=== PATIENT | female | born 1960 | race Caucasian/White ===

== ENCOUNTER 2017-02-08 16:16 | Observation (INO) ==
[2017-02-08] MEDS ORDERED: Aspirin 81 MG TAB.CHEW PO STA (17:14)
[2017-02-08] MEDS ORDERED: Ondansetron 4 MG/2 ML VIAL IVP ONE (17:14)
[2017-02-08] MEDS ORDERED: 0.9 % Sodium Chloride 1,000 ML IVC ONE (17:14)
[2017-02-08 17:30] LABS: Basophils % 0.3 %; Eosinophils # 0.1 K/mcL (0.0-0.6); Eosinophils % 0.7 %; Hematocrit 46.2 % (35.3-44.9); Immature Granulocytes % 0.2 % (0-4); Lymphocytes # 4.1 K/mcL (0.6-4.6); Lymphocytes % 32.1 %; Mean Corpuscular HGB Conc 32.5 g/dL (31.6-35.5); Mean Corpuscular Hemoglobin 28.1 pg (28.0-33.3); Mean Corpuscular Volume 86.5 fL (83.0-100.0); Mean Platelet Volume 12.3 fL (9.4-12.4); Monocytes # 0.8 K/mcL (0.0-1.3); Monocytes % 6.5 %; Neutrophils # 7.6 K/mcL (1.6-8.9); Platelet Count 332 K/mcL (140-400); Red Blood Count 5.34 M/mcL (3.82-4.97); Red Cell Distribution Width 12.8 % (11.5-14.5); Segmented Neutrophils % 60.2 %
[2017-02-08 17:43] LABS: Alanine Aminotransferase 24 Units/L (0-55); Albumin 3.9 g/dL (3.5-5.0); Albumin/Globulin Ratio 1.1 (1.1-2.2); Alkaline Phosphatase 54 Units/L (38-126); Aspartate Amino Transferase 21 Units/L (5-34); BUN/Creatinine Ratio 17 (6-26); Bilirubin,Total 0.4 mg/dL (0.2-1.2); Blood Urea Nitrogen 15 mg/dL (7-20); Calcium 9.9 mg/dL (8.6-10.8); Carbon Dioxide 24 mEq/L (19-29); Chloride 107 mEq/L (98-109); Globulin 3.7 g/dL (2.4-3.5); Glucose 125 mg/dL (70-99); Osmolality,Calculated 296 (280-300); Sodium 142 mEq/L (136-145); Total Protein 7.6 g/dL (6.0-8.3); eGFR For African Americans > 60 (> 60); eGFR For Non-African Americans > 60 (> 60)
[2017-02-08 18:05] LABS: Thyroid Stimulating Hormone 2.259 mcIU/mL (0.350-4.840)
--- NOTE | 2017-02-08 18:54 | Emergency Department Note ---
Disposition Clinical Impression: Palpitations Atrial fibrillation Qualifiers: Atrial fibrillation type: paroxysmal Qualified Code(s): I48.0 - Paroxysmal atrial fibrillation Disposition: Admitted As Inpatient Condition: Good Referrals: Fany Alicea MD [Primary Care Provider] - Forms: ED Satisfaction Letter Time of Disposition: 19:06 Arrhythmia/Palpitations HPI - General Chief Complaint: ED Arrhythmia/Palpitations Stated Complaint: tachycardiafor an hour Time Seen by Provider: 02/08/17 16:37 Source: patient Mode of arrival: ambulatory Limitations: no limitations Nursing Notes Reviewed: Yes Vital Signs Reviewed: Yes - History of Present Illness HPI Narrative: Patient presents emergency room complaining of palpitations. She felt them on and off for years but today they did not go away denies any other symptoms or complaints. She has had these on and off for many years. His workup in the past for thyroid function issues as well as vascular abnormalities. Patient denies any recent medication changes except for increased stress at work. Pt Subjective Complaint: rapid heart beat, palpitations Context: occurred during rest Associated symptoms: Reports: denies other symptoms - Related Data Home Medications Medication Instructions Recorded Confirmed B Complex with Vitamin C [Cynthia-Bee 1 each PO DAILY 02/08/17 02/08/17 with C] Calcium Carbonate/Vitamin D3 1 each PO DAILY 02/08/17 02/08/17 [Calcium 500-Vit D3 200 Tablet] Esomeprazole Magnesium [Nexium 22.3 mg PO DAILY 02/08/17 02/08/17 24Hr] Gabapentin [Neurontin] 300 mg PO [facility] 02/08/17 02/08/17 Gabapentin [Neurontin] 600 mg PO HS 02/08/17 02/08/17 Magnesium 200 mg PO DAILY 02/08/17 02/08/17 Melatonin [Melatin] 3 mg PO HS 02/08/17 02/08/17 Allergies Allergy/AdvReac Type Severity Reaction Status Date / Time Penicillins Allergy Anaphylaxis Verified 02/08/17 16:25 Opioids-Meperidine and AdvReac Agitated Verified 02/08/17 16:25 Related [Opioids-Meperidine & Related] All systems ED: reviewed and negative except as stated. Review of Systems: As Per HPI Constitutional: Denies: fever, chills Cardiovascular: Reports: palpitations. Denies: chest pain, dyspnea on exertion , orthopnea Respiratory: Denies: cough, dyspnea, wheezes Gastrointestinal: Denies: abdominal pain, nausea, vomiting, diarrhea Genitourinary: Denies: urgency, dysuria Musculoskeletal: Denies: back pain, neck pain Neurological: Denies: headache Psychiatric: Denies: anxiety, depression Endocrine: Denies: fatigue Past Medical History - Past Medical History Attestation: Yes The following information was validated with the patient. Source: patient Medical history: Reports: GERD, other Surgical history: Reports: other Psychiatric history: Reports: no psych history [employer] history: Reports: no [employer] history - Social History Smoking Status: Never smoker Smokeless Tobacco Status: No Alcohol use: Reports: none Drug use: Reports: none Physical Exam - General Limitations: no limitations General appearance: alert - Neck Neck exam: Present: normal inspection, full ROM, trachea midline - Chest Chest inspection: Present: normal inspection, symmetric chest wall rise - Respiratory Respiratory exam: Present: normal lung sounds bilaterally. Absent: respiratory distress, wheezes, accessory muscle use - Cardiovascular Cardiovascular exam: Present: tachycardia, irregular rhythm, normal heart sounds - Abdominal Exam Abdominal exam: Present: soft, Non-Tender, normal bowel sounds. Absent: tenderness, distention, guarding, rebound, rigidity - Extremities Exam Extremities exam: Present: normal inspection, full ROM, normal capillary refill. Absent: tenderness - Back Exam Back exam: Present: normal inspection, full ROM. Absent: tenderness - Neurological Exam Neurological exam: Present: alert, oriented X3, CN II-XII intact, normal gait - Skin Skin exam: Present: warm, dry, intact, normal color Course Course Narrative: Patient seen and examined the time of arrival. See history of present illness. 56-year-old female presents emergency room complaining of palpitations. She has had these on and off for several years. Onset earlier today and they were persistent. She is concerned because she has never had persistent like this in the past. Patient denies any chest pain shortness of breath headache vision changes nausea vomiting or diarrhea. Denies any fevers or chills. Patient's initial evaluation shows heart rate in the 1:30 to 150 range. EKG shows atrial fibrillation patient has never had any 4. Basic laboratory workup including electrolytes and chemistry panel is ordered. The patient sustained atrial fibrillation after fluids and medication evaluation will provide her with Cardizem bolus to see if we can convert spontaneously. Otherwise physical exam is benign head is atraumatic pupils equal and reactive to light. Extraocular muscles are intact. Lungs are clear heart is regular abdomen is soft. Otherwise no other acute medical issues or symptoms. Disposition pending workup and treatment first. - Reevaluation(s) Reevaluation #1: Patient has negative laboratory workup at this time. Electrolytes and thyroid function are normal. Fluids been given and what appears to be tachycardic rhythm and has maintained a single dose of 10 mg of Cardizem to begin at this time. Repeat EKG completed after medication was given. Patient is now in sinus rhythm with no acute abnormalities. Admission process will be completed at the request of myself secondary to appears to be paroxysmal A. fib despite been undiagnosed for several years. Patient with cardiac evaluation in the hospital. No need for anticoagulation at this time. Patient is otherwise resting comfortably in the bed with normal rhythm at this point. She is comfortable with this plan hospitalfor admission Time: 19:04 Reevaluation #2: Patient discussed with the hospitalist Dr. cook. Review the presentation symptoms medical history as well as response to medications here. Happy to admit the patient this time and no anti-coagulation studies recommended. Patient otherwise is resting in the bed at this time. Admission for paroxysmal A. fib be completed. Sinus rhythm noted on repeat EKG at this time. We will continue monitor here and so admission is completed Time: 19:42 Vital Signs Temperature 98 F 02/08/17 16:30 Pulse Rate 126 02/08/17 16:30 Respiratory Rate 20 02/08/17 16:30 Blood Pressure 141/97 02/08/17 16:30 O2 Sat by Pulse Oximetry 97 02/08/17 16:30 Temperature 98 F 02/08/17 16:30 Pulse Rate 91 02/08/17 18:45 Respiratory Rate 16 02/08/17 18:45 Blood Pressure 122/75 02/08/17 18:45 O2 Sat by Pulse Oximetry 97 02/08/17 18:45 Oxygen Delivery Oxygen Delivery Room Air Arrhythmia/Palpitations - [facility] Narrative Medical decision making narrative: Paroxysmal A. fib, rapid ventricular response - Medical Records Medical records reviewed: Yes I reviewed the patient's medical records. - Lab Data Lab results reviewed: Yes I reviewed the patient's lab results. Result diagrams: 02/08/17 16:48 02/08/17 16:48 Lab Results 02/08/17 02/08/1717 Range/Units 16:48 16:48 16:48 WBC 12.7 H (4.3-11.1) K/mcL RBC 5.34 H (3.82-4.97) M/mcL Hgb 15.0 (11.5-15.4) g/dL Hct 46.2 H (35.3-44.9) % MCV 86.5 (83.0-100.0) fL MCH 28.1 (28.0-33.3) pg MCHC 32.5 (31.6-35.5) g/dL RDW 12.8 (11.5-14.5) % Plt Count 332 (140-400) K/mcL MPV 12.3 (9.4-12.4) fL Immature Gran % 0.2 (0-4) % Seg Neutrophils % 60.2 % Lymphocytes % 32.1 % Monocytes % 6.5 % Eosinophils % 0.7 % Basophils % 0.3 % Neutrophils # 7.6 (1.6-8.9) K/mcL Lymphocytes # 4.1 (0.6-4.6) K/mcL Monocytes # 0.8 (0.0-1.3) K/mcL Eosinophils # 0.1 (0.0-0.6) K/mcL Basophils # 0.0 (0.0-0.2) K/mcL Sodium 142 (136-145) mEq/L Potassium 4.0 (3.5-4.5) mEq/L Chloride 107 (98-109) mEq/L Carbon Dioxide 24 (19-29) mEq/L BUN 15 (7-20) mg/dL Creatinine 0.87 (0.57-1.11) mg/dL Est GFR ( Amer) > 60 (> 60) Est GFR (Non-Af Amer) > 60 (> 60) BUN/Creatinine Ratio 17 (6-26) Glucose 125 H (70-99) mg/dL Calculated Osmolality 296 (280-300) Calcium 9.9 (8.6-10.8) mg/dL Total Bilirubin 0.4 (0.2-1.2) mg/dL AST 21 (5-34) Units/L ALT 24 (0-55) Units/L Alkaline Phosphatase 54 (38-126) Units/L Troponin I 0.00 (0-0.03) ng/mL Serum Total Protein 7.6 (6.0-8.3) g/dL Albumin 3.9 (3.5-5.0) g/dL Globulin 3.7 H (2.4-3.5) g/dL Albumin/Globulin Ratio 1.1 (1.1-2.2) TSH 2.259 (0.350-4.840) mcIU/mL - Radiology Data Radiology results reviewed: Yes I reviewed the patient's radiology results. Chest x-ray is negative - EKG Data EKG attestation: Yes I reviewed and interpreted this EKG. Rate: tachycardia Rhythm: A.Fib [place]/QRS: normal Interpretation: other (Repeat EKG after Cardizem bolus shows sinus rhythm with heart rate 91 and normal intervals.) Critical Care Time Critical Care Time: Yes Total Critical Care Time: 35 Attestation: Critical care performed: Time is exclusive of separately billable procedures. Time includes: direct patient care, patient reassessment, coordination of patient care, interpretation of data (laboratory data, radiology data, and respiratory data), review of patient's medical records, medical consultation and documentation of patient care. Procedures included in critical care time: Procedures excluded from critical care time:
[2017-02-08] MEDS ORDERED: Acetaminophen 325 MG TABLET PO PRN (20:27)
[2017-02-08] MEDS ORDERED: Naloxone 0.4 MG/ML INJ IVP PRN (20:27)
--- NOTE | 2017-02-08 20:36 | Internal Med History&Physical ---
Date of Encounter: 02/08/17 Time of Encounter: 20:00 Assessment and Plan (1) Palpitations Current visit: Yes Status: Acute Per ED physician, patient was in Afib with RVR. ECG looks like SVT. Will order an Echocardiogram and consult Cardiology for the a.m. Daytime hospitalist to contact Cardiology in the morning. Patient is currently NSR. No anticoagulation started given no concrete evidence of Afib/Aflutter and low-moderate risk [id number] score of 1. (2) Leukocytosis Current visit: Yes Status: Acute Possibly reactive. No overt signs of infection at this time, CXR negative, but still awaiting UA. Qualifiers: Leukocytosis type: unspecified Qualified Code(s): D72.829 - Elevated white blood cell count, unspecified (3) Hyperglycemia Current visit: Yes Status: Acute History of "borderline DM." Will check A1C. Internal Medicine - H&P: HPI Chief complaint: palpitations Admitted From: Home Plans for Post Hospital Care: Home History of present illness: Ms. Coley is a 56 year old female with PMH GERD and palpitations on and off for the past 3 years who presents with palpitations and lightheadedness. Patient claims that she has not been feeling well over this past weekend and attributed this to stress and being over-worked. Has been having lightheadedness upon standing. She was resting this afternoon when she had sudden onset chest discomfort. Took her pulse using her friend's blood pressure cuff and it was "high." She went to the ED when her symptoms failed to improve. ED physician reported that patient was in Atrial Fibrillation with RVR and she was given a dose of Cardizem (bolus) and she converted to NSR. She feels well at this time. Past Med Surg Social Fam HX - Past Medical History Medical history: GERD, other Psychiatric history: no psych history - Past Surgical History Surgical History: other - Social History Smoking Status: Never smoker Smokeless Tobacco Status: No Alcohol use: none Drug use: none - Family History Father Age at : 50 Hx Family Cardiac Disorders: Yes ( from [place] ) Internal Medicine - H&P: Meds B Complex with Vitamin C [Cynthia-Bee with C] 1 each PO DAILY 02/08/17 [History] Calcium Carbonate/Vitamin D3 [Calcium 500-Vit D3 200 Tablet] 1 each PO DAILY 07/27 [History] Esomeprazole Magnesium [Nexium 24Hr] 22.3 mg PO DAILY 02/08/17 [History] Gabapentin [Neurontin] 300 mg PO QAM 02/08/17 [History] Gabapentin [Neurontin] 600 mg PO HS 02/08/17 [History] Magnesium 200 mg PO DAILY 02/08/17 [History] Melatonin [Melatin] 3 mg PO HS 02/08/17 [History] Allergies Penicillins Allergy (Verified 02/08/17 16:25) Anaphylaxis Opioids-Meperidine and Related [Opioids-Meperidine & Related] Adverse Reaction ( Verified 02/08/17 16:25) Agitated All Systems PM: A 10-system review of systems was performed and is negative for pertinent findings except as documented above in the HPI. - Constitutional Constitutional: chills Additional comments: some sweats - EENT Eyes: no blurry vision, no diplopia - Cardiovascular Cardiovascular ROS IM: as per HPI, irregular heart rhythm, lightheadedness, no dyspnea, no edema, no syncope - Respiratory Respiratory: no dyspnea - Neurological Neurological ROS: no abnormal gait, no weakness - Constitutional Vitals: Temp Pulse Resp BP Pulse Ox 98 F 91 16 122/75 97 02/08/17 16:30 02/08/17 18:45 02/08/17 18:45 02/08/17 18:45 02/08/17 18:45 General appearance: Present: cooperative, A&O X 3, pleasant, no acute distress, answers questions appropriately - ENT ENT exam: Present: mucous membranes moist, normal exam - Neck Neck exam general surgery: Present: supple. Absent: thyromegaly - Respiratory Respiratory exam: Present: CTAB - Cardiovascular Cardiovascular exam: Present: RRR, +S1, +S2. Absent: diastolic murmur, systolic murmur - Extremities Exam Extremities exam: Absent: pedal edema - Psychiatric Psychiatric exam: Present: normal affect, normal mood Internal Med - H&P Results - Labs CBC & Chem 7: 02/08/17 16:48 02/08/17 16:48
[2017-02-08 23:22] LABS: Bilirubin,Urine Negative (Negative); Blood,Urine Negative (Negative); Clarity,Urine Clear (Clear); Color,Urine Yellow (Yellow); Glucose,Urine (UA) Normal (Normal); Ketones,Urine Negative (Negative); Leukocyte Esterase,Urine Trace (Negative); Nitrite,Urine Negative (Negative); Protein,Urine Negative (Neg-Trace); Specific Gravity,Urine 1.024 (1.010-1.025); Urobilinogen,Urine Normal (Normal)
[2017-02-08 23:24] LABS: Bacteria,Urine None Seen per hpf (None-Few); Hyaline Casts,Urine None Seen per lpf (None-Few); RBC,Urine 0-3 per hpf (0-3); Squamous Epithelial Cell,Urine None Seen per lpf (None-Few)
[2017-02-09 04:22] LABS: Basophils % 0.5 %; Eosinophils # 0.1 K/mcL (0.0-0.6); Eosinophils % 1.2 %; Hematocrit 40.6 % (35.3-44.9); Immature Granulocytes % 0.1 % (0-4); Lymphocytes # 3.4 K/mcL (0.6-4.6); Lymphocytes % 39.9 %; Mean Corpuscular Volume 87.5 fL (83.0-100.0); Mean Platelet Volume 11.8 fL (9.4-12.4); Monocytes # 0.7 K/mcL (0.0-1.3); Monocytes % 7.8 %; Neutrophils # 4.3 K/mcL (1.6-8.9); Platelet Count 248 K/mcL (140-400); Red Blood Count 4.64 M/mcL (3.82-4.97); Segmented Neutrophils % 50.5 %
[2017-02-09 04:29] LABS: Hemoglobin A1C 5.8 %
[2017-02-09 04:38] LABS: Alanine Aminotransferase 18 Units/L (0-55); Albumin 3.1 g/dL (3.5-5.0); Albumin/Globulin Ratio 1.1 (1.1-2.2); Alkaline Phosphatase 42 Units/L (38-126); Aspartate Amino Transferase 15 Units/L (5-34); BUN/Creatinine Ratio 22 (6-26); Bilirubin,Total 0.5 mg/dL (0.2-1.2); Blood Urea Nitrogen 18 mg/dL (7-20); Calcium 9.2 mg/dL (8.6-10.8); Carbon Dioxide 27 mEq/L (19-29); Chloride 108 mEq/L (98-109); Chol/HDL Ratio 3.4 (0-4.9); Cholesterol 189 mg/dL (< 200); Globulin 2.9 g/dL (2.4-3.5); Glucose 104 mg/dL (70-99); HDL Cholesterol 55 mg/dL (40-59); LDL Cholesterol,Calculated 115 mg/dL (0-99); Magnesium 1.9 mg/dL (1.6-2.6); Osmolality,Calculated 298 (280-300); Potassium 4.1 mEq/L (3.5-4.5); Sodium 143 mEq/L (136-145); Triglycerides 96 mg/dL (< 150); eGFR For African Americans > 60 (> 60); eGFR For Non-African Americans > 60 (> 60)
[2017-02-09] MEDS ORDERED: Diltiazem CD (24hr) 120 MG CAPSULE PO SCH (10:15)
--- NOTE | 2017-02-09 10:38 | Cardiology Consult Note ---
Date of Encounter: 02/09/17 Time of Encounter: 10:36 Assessment and Plan (1) SVT (supraventricular tachycardia) Current Visit: Yes Status: Acute SVT HR 150s on presentation, converted with Cardizem bolus. Reported palpitations and chest pressure during episode--lasted approximately 2 hours. Symptoms resolved with return to SR. Reports more caffeine intake yesterday than usual. Currently SR, 12 hr tele AVG HR 75 SR with ectopy. Recommend PO Cardizem CD 120mg daily. Mag 1.9, K 4.1, TSH 2.259. Echo pending. If echo shows no significant findings, anticipate sign off with outpt follow- up. (2) WANDA (obstructive sleep apnea) Current Visit: Yes Status: Resolved Compliant with CPAP at home. (3) Chest pain Current Visit: Yes Status: Acute Chest pressure during SVT that resolved with conversion to SR. Reports intermittent atypical chest pain that she attributes to GERD. Father had OR at age 50, which he from. Recommend outpt stress test, as pt has already eaten. She is chest pain free currently without high risk features. Troponin negative x 2. Qualifiers: Chest pain type: unspecified Qualified Code(s): R07.9 - Chest pain, unspecified Discussion w patient/family: The assessment and plan as outlined above was discussed with the patient and/or family members who expressed understanding and agreement. All questions were answered. Thank you for involving us in the care of your patient. Please call with any questions. I will discuss all the above with Dr. Scott Dotson and make changes as necessary. History of Present Illness Consult date: 02/09/17 Requesting physician: Tanya Jade Consult reason: SVT Chief complaint: palpitations History of present illness: Ms. Coley is a 56 year old female with PMH of GERD, WANDA on CPAP, and palpitations intermittently over the past 3 years who presented to ED with palpitations lasting for 2 hours and lightheadedness. Patient claims that she has not been feeling well over this past weekend and attributed this to stress and being over-worked. Has been having lightheadedness upon standing. She experienced chest discomfort/pressure during episode of palpitations. She was found to be in SVT in ED, was given a dose of Cardizem (bolus) and she converted to NSR. She reports symptoms resolved with return of SR. Currently denies any symptoms. No prior cardiac hx. She does report drinking more caffeine than usual yesterday. Past Med Surg Social Fam HX - Past Medical History Medical history: GERD, other Psychiatric history: no psych history - Past Surgical History Surgical History: other - Social History Smoking Status: Never smoker Smokeless Tobacco Status: No Alcohol use: none Drug use: none - Family History Father Age at : 50 Hx Family Cardiac Disorders: Yes ( from OR ) Medications and Allergies B Complex with Vitamin C [Cynthia-Bee with C] 1 each PO DAILY 02/08/17 [History] Calcium Carbonate/Vitamin D3 [Calcium 500-Vit D3 200 Tablet] 1 each PO DAILY 07/27 [History] Esomeprazole Magnesium [Nexium 24Hr] 22.3 mg PO DAILY 02/08/17 [History] Gabapentin [Neurontin] 300 mg PO QAM 02/08/17 [History] Gabapentin [Neurontin] 600 mg PO HS 02/08/17 [History] Magnesium 200 mg PO DAILY 02/08/17 [History] Melatonin [Melatin] 3 mg PO HS 02/08/17 [History] Allergies Penicillins Allergy (Verified 02/08/17 16:25) Anaphylaxis Opioids-Meperidine and Related [Opioids-Meperidine & Related] Adverse Reaction ( Verified 02/08/17 16:25) Agitated All Systems Review: A 10-system review of systems was performed and is negative for pertinent findings except as documented above in the HPI. - Cardiovascular Cardiovascular: as per HPI, chest pain at rest, palpitations Physical Examination Vital Signs, Last 4 Hours Temp Pulse Resp BP Pulse Ox 02/09/17 07:56 97.9 F 64 16 124/85 98 Vital Signs Temp Pulse Pulse Pulse Pulse Resp BP 02/09/17 07:56 97.9 F 64 16 124/85 02/09/17 03:05 97.7 F 73 16 113/66 02/08/17 23:03 97.9 F 77 83 89 85 16 111/73 02/08/17 21:20 98.1 F 85 14 127/83 02/08/17 21:18 0 0/0 02/08/17 18:45 91 16 122/75 02/08/17 16:30 98 F 126 20 141/97 BP BP BP Pulse Ox 02/09/17 07:56 98 02/09/17 03:05 97 02/08/17 23:03 111/73 143/93 146/97 96 02/08/17 21:20 96 02/08/17 21:18 02/08/17 18:45 97 02/08/17 16:30 97 Intake and Output 02/08/17 02/09/17 02/09/17 23:59 07:59 15:59 Intake Total 600 / 600 Output Total 200 / 200 Balance -200 / -200 600 / 600 Intake: Oral 600 / 600 Output: Urine 200 / 200 Other: Meal Breakfast Percent of Meal Consumed 80% Weight 94.347 kg 93.621 kg Patient Weight 02/09/17 23:59 Weight 93.621 kg General: Conversant, No Apparent Distress HEENT: Atraumatic, Normocephaly, Mucus Membranes Moist Neck: No JVD, Normal carotid pulses Cardiac: Reg Rate and Rhythm, Normal S1 and S2, No Murmur Lungs: Normal Breath Sounds, No Wheeze, Rales, Rhonchi Neuro: Alert and responsive, No focal deficits noted Abdomen: Soft, Non-Tender Skin: No rashes noted on visualized skin Musculoskeletal: No Chest Wall Tenderness Extremities: No Clubbing, No Cyanosis, No Edema, Normal Pulses Results 02/09/17 03:15 02/09/17 03:15 Lab Results 02/09/17 02/09/17 02/09/17 03:15 03:15 03:15 WBC 8.5 Hgb 13.0 D Hct 40.6 Plt Count 248 Sodium 143 Potassium 4.1 Chloride 108 Carbon Dioxide 27 BUN 18 Creatinine 0.83 Glucose 104 H Calcium 9.2 Magnesium 1.9 Total Bilirubin 0.5 AST 15 ALT 18 Alkaline Phosphatase 42 Troponin I 0.02 B-Natriuretic Peptide 02/09/17 03:15 WBC Hgb Hct Plt Count Sodium Potassium Chloride Carbon Dioxide BUN Creatinine Glucose Calcium Magnesium Total Bilirubin AST ALT Alkaline Phosphatase Troponin I B-Natriuretic Peptide 81 Short CBC 02/09/17 02/08/17 Range/Units 03:15 16:48 WBC 8.5 12.7 H (4.3-11.1) K/mcL Hgb 13.0 D 15.0 (11.5-15.4) g/dL Hct 40.6 46.2 H (35.3-44.9) % Plt Count 248 332 (140-400) K/mcL Neutrophils # 4.3 7.6 (1.6-8.9) K/mcL BMP 02/09/17 02/08/17 Range/Units 03:15 16:48 Sodium 143 142 (136-145) mEq/L Potassium 4.1 4.0 (3.5-4.5) mEq/L Chloride 108 107 (98-109) mEq/L Carbon Dioxide 27 24 (19-29) mEq/L BUN 18 15 (7-20) mg/dL Creatinine 0.83 0.87 (0.57-1.11) mg/dL Glucose 104 H 125 H (70-99) mg/dL Calcium 9.2 9.9 (8.6-10.8) mg/dL Cardiac Enzymes 02/09/17 02/08/17 Range/Units 03:15 16:48 Troponin I 0.02 0.00 (0-0.03) ng/mL Liver Function 02/09/17 02/08/17 Range/Units 03:15 16:48 Total Bilirubin 0.5 0.4 (0.2-1.2) mg/dL AST 15 21 (5-34) Units/L ALT 18 24 (0-55) Units/L Alkaline Phosphatase 42 54 (38-126) Units/L Albumin 3.1 L D 3.9 (3.5-5.0) g/dL Urine 02/08/17 Range/Units 23:10 Urine Color Yellow (Yellow) Urine Clarity Clear (Clear) Urine pH 6.0 (5.0-8.0) pH Units Ur Specific [place] 1.024 (1.010-1.025) Urine Protein Negative (Neg-Trace) mg/dL Urine Glucose (UA) Normal (Normal) mg/dL Impressions Chest X-Ray 02/08/17 16:26 IMPRESSION: No acute process. D/ / 02/08/2017 17:24:42 Hunter Hutchinson MD / [email or web address] Interpreting Provider: Hunter Hutchinson MD Active Medications Acetaminophen (Tylenol) 650 mg PO Q6HR PRN PRN Reason: Mild Pain (1-3) Stop: 08/10/17 20:28 Diltiazem HCl (Cardizem Cd) 120 mg PO DAILY DIANA Stop: 08/11/17 10:16 Naloxone HCl (Narcan) 0.4 mg IVP Q2MIN PRN PRN Reason: Opioid Reversal Stop: 08/10/17 20:28 - Imaging and Cardiology Chest Xray: report reviewed Echo: pending - EKG Interpretation EKG results cardiology: personally reviewed (SVT, rate 150s), other (12 hr tele AVG HR 75, SR with ectopy) Consult Discharge Plan - Plan Referrals: Fany Alicea MD [Primary Care Provider] -
[2017-02-09 11:12] VITALS: BP 124/87
--- NOTE | 2017-02-09 13:04 | Event Note ---
Date of Encounter: 02/09/17 Time of Encounter: 13:03 - Cardiology Event Note Echo resulted--EF 55%, mild LVDD, mild MR. Cardiology signing off. Continue Cardizem CD 120mg daily. Will coordinate follow-up in 2-3 weeks. Reconsult PRN.
--- NOTE | 2017-02-09 13:43 | Discharge Summary ---
Date of Encounter: 02/09/17 Time of Encounter: 08:05 - Discharge Medications Prescriptions: Diltiazem CD (24hr) [Cardizem CD] 120 mg PO DAILY #30 cap Home Medications: B Complex with Vitamin C [Cynthia-Bee with C] 1 each PO DAILY 02/08/17 [History] Calcium Carbonate/Vitamin D3 [Calcium 500-Vit D3 200 Tablet] 1 each PO DAILY 07/27 [History] Esomeprazole Magnesium [Nexium 24Hr] 22.3 mg PO DAILY 02/08/17 [History] Gabapentin [Neurontin] 300 mg PO QAM 02/08/17 [History] Gabapentin [Neurontin] 600 mg PO HS 02/08/17 [History] Magnesium 200 mg PO DAILY 02/08/17 [History] Melatonin [Melatin] 3 mg PO HS 02/08/17 [History] Diltiazem CD (24hr) [Cardizem CD] 120 mg PO DAILY #30 cap 02/09/17 [Rx] Allergies/Adverse Reactions: Allergies Penicillins Allergy (Verified 02/08/17 16:25) Anaphylaxis Opioids-Meperidine and Related [Opioids-Meperidine & Related] Adverse Reaction ( Verified 02/08/17 16:25) Agitated Procedures/tests Complete & Pending: Procedures Performed prior 72 hours Category Date Time Status ECG 12 lead ECG [ECG] Routine Y 02/08/17 18:51 Completed EV echocardiogram Routine Y 02/09/17 20:29 Completed Date of admission: 02/08/17 20:04 Primary care physician: Fany Alicea MD Consults: 02/08/17 20:26 Consult to Cardiology [CONS] Routine Comment: Consulting Provider: Jose Nunn Reason for Consult: reported afib with RVR Call Completed: No Discharging clinician: Sandy Maxwell Anticipated date of discharge: 02/09/17 - Patient Status Disposition: Home, Self-Care Condition: Good - Discharge Instructions Instructions: Diltiazem (By mouth), Supraventricular Tachycardia (DC), Supraventricular Tachycardia (GEN) Follow Up With: Jose Nunn [Provider Group] - 03/02/17 8:00 am Fany Alicea MD [Primary Care Provider] - 02/17/17 10:50 am () Additional Instructions: Cardiology will contact you for a follow-up visit in 2-3 weeks. Follow up with your primary care provider in the next 7-10 days for a follow-up visit. Return to the emergency department as needed for any other problems or concerns or if your symptoms return or worsen. Begin your new medication tomorrow. Check your blood sugar in the morning when you first get up and before you eat anything. This reading should be under 100. Check your blood sugar 2 hours after you eat any other meal as the day. You may also check her blood sugar prior to going to sleep. Try to follow a low carb, low sugar, low-fat diet. Record all of your blood sugars and take them to your primary care physician visit. - Diet and Activity Activity: increase activity as tolerated Diet: diabetic diet, low fat, low cholesterol Hospital course: Ms. Coley is a 56 year old female with prior medical history of GERD. She does report palpitations on and off for the last 3 years. She presented to the emergency department last night with palpitations and lightheadedness. She reports feeling fatigued and tired for several days. Last night she began feeling as if her heart was racing, she took her pulse on a portable blood pressure machine at home, rate was variable between 120s and 150s. Episode lasted approximately 2 hours. In the emergency department EKG was diagnosed as A. fib RVR by emergency physician, cardiology diagnoses it is SVT. Either way, patient converted with Cardizem in the emergency department and stated that she felt better, however was very tired afterward. She reports that over the last 5 months she has felt very tired and has been working 60+ hours per week on a large project at work. Echocardiogram shows an EF of 55% with mild LV DD, mild MR. Asked x-ray was negative for any acute cardiopulmonary disease. Troponins were negative. Patient will follow up with cardiology in the office in 2-3 weeks. She has been placed on Cardizem CD 120 mg daily. She did well with her first dose, I have Imdur prescription for 30 day supply. Patient also states that until today she was borderline diabetic. A1c was 5.8. 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 I have job that patient has the appropriate resources to follow an ADA diet. We discussed no rigorous exercise at this time until she is cleared by cardiology. I have given her a glucometer , test strips, lancets to check her blood sugar and have instructed her to write her readings down and taken to her primary care physician when she follows up. Patient verbalized understanding with all instructions. Her vital signs and in stable, labs are stable and within normal limits. Patient is appropriate and stable for discharge. - Time Spent with Patient Total time spent providing and/or coordinating discharge services: Less than 30 minutes - Constitutional Vitals: Temp Pulse Resp BP Pulse Ox 97.8 F 70 18 124/87 97 02/09/17 11:09 02/09/17 11:02/09/17 11:09 02/09/17 11:02/09/17 11:09 General appearance: Present: cooperative, A&O X 3, pleasant, no acute distress, answers questions appropriately - Head Head exam: Present: normal inspection - Eye Eye exam: Present: normal appearance, conjuntiva pink - ENT ENT exam: Present: mucous membranes moist, normal exam, normal external ear exam , normal oropharynx - Neck Neck exam general surgery: Present: normal inspection. Absent: lymphadenopathy , tenderness - Respiratory Respiratory exam: Present: CTAB. Absent: chest wall tenderness, rales, respiratory distress, rhonchi, stridor, wheezes - Cardiovascular Cardiovascular exam: Present: RRR, +S1, +S2. Absent: diastolic murmur, systolic murmur - Expanded Cardiovascular Exam Peripheral pulses: 1+: Dorsalis Pedis (L) PM, Dorsalis Pedis (R) PM - GI/Abdominal GI/Abdominal exam: Present: normal bowel sounds, soft. Absent: distended, hepatomegaly, tenderness - Extremities Exam Extremities exam: Present: normal inspection, warm, radial pulses palpable and symetrical. Absent: pedal edema, tenderness - Neurological Exam Neurological exam: Present: alert, oriented X3, no focal deficits. Absent: facial droop, speech deficit - Skin Skin exam: Present: dry, intact, normal color, warm. Absent: rash
--- NOTE | 2017-02-09 21:48 | Electrocardiograph Report ---
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
--- NOTE | 2017-02-09 21:52 | Electrocardiograph Report ---
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
== END 2017-02-09 14:19 | disposition home or self-care (01) ==
LOC: EMEROO 16:16 → 3BNU 16:16
PROVIDERS: ADMIT Family Medicine; ATTEND Registered Nurse

== ENCOUNTER 2021-04-17 09:01 | Observation (INO) ==
[2021-04-17 09:45] LABS: Basophils % 0.3 %; Eosinophils % 0.4 %; Hematocrit 43.5 % (35.3-44.9); Hemoglobin 14.4 g/dL (11.5-15.4); Immature Granulocytes % 0.4 % (0-4); Lymphocytes # 1.2 K/mcL (0.6-4.6); Lymphocytes % 10.6 %; Mean Corpuscular HGB Conc 33.1 g/dL (31.6-35.5); Mean Corpuscular Hemoglobin 29.1 pg (28.0-33.3); Mean Corpuscular Volume 88.1 fL (83.0-100.0); Monocytes # 0.9 K/mcL (0.0-1.3); Monocytes % 7.7 %; Neutrophils # 9.1 K/mcL (1.6-8.9); Platelet Count 255 K/mcL (140-400); Red Blood Count 4.94 M/mcL (3.82-4.97); Red Cell Distribution Width 12.6 % (11.5-14.5); Segmented Neutrophils % 80.6 %; White Blood Count 11.2 K/mcL (4.3-11.1)
[2021-04-17] MEDS ORDERED: Ondansetron 4 MG/2 ML VIAL IVP ONE (09:46)
[2021-04-17] MEDS ORDERED: 0.9 % Sodium Chloride 1,000 ML IVC ONE (09:46)
[2021-04-17 10:06] LABS: Alanine Aminotransferase 15 Units/L (7-52); Albumin/Globulin Ratio 1.7 (1.1-2.2); Alkaline Phosphatase 49 Units/L (34-104); Aspartate Amino Transferase 18 Units/L (13-39); BUN/Creatinine Ratio 21 (6-26); Bilirubin,Indirect 0.5 mg/dL (0.0-1.0); Bilirubin,Total 0.5 mg/dL (0.3-1.0); Blood Urea Nitrogen 16 mg/dL (8-23); Calcium 9.4 mg/dL (8.6-10.3); Carbon Dioxide 21 mEq/L (23-29); Chloride 104 mEq/L (98-107); Globulin 2.4 g/dL (2.4-3.5); Glucose 178 mg/dL (70-105); Osmolality,Calculated 292 (280-300); Potassium 3.5 mEq/L (3.5-5.1); Sodium 138 mEq/L (136-145); Total Protein 6.4 g/dL (6.4-8.9); Troponin I < 0.03 ng/mL (< 0.04); eGFR For African Americans > 60 (> 60); eGFR For Non-African Americans > 60 (> 60)
[2021-04-17] MEDS ORDERED: Acetaminophen 325 MG TABLET PO PRN (14:35)
[2021-04-17] MEDS ORDERED: Ondansetron 4 MG/2 ML VIAL IVP PRN (14:35)
[2021-04-17] MEDS ORDERED: Perflutren Lipid Microsphere 1.3 ML in 0.9 % Sodium Chloride 8.7 ML IVP PRN (15:05)
[2021-04-17] MEDS ORDERED: *HR* Dextrose 50 % in Water (Syg) 50 ML SYRINGE IVP PRN (15:06)
[2021-04-17] MEDS ORDERED: Dextrose Gel 15 GM/37.5 ML TUBE PO PRN ×2 (15:06)
[2021-04-17] MEDS ORDERED: D5% in Water 1,000 ML IVC PRN (15:06)
[2021-04-17] MEDS ORDERED: Ringers Solution, Lactated 1,000 ML IVC ONE (15:07)
[2021-04-17 15:44] LABS: Magnesium 1.7 mg/dL (1.6-2.6); Phosphorous 3.3 mg/dL (2.7-4.5)
[2021-04-17] MEDS: Insulin LISPRO 300 UNITS/3 ML VIAL SUBQ SCH (16:51)
[2021-04-17] MEDS ORDERED: Insulin LISPRO 300 UNITS/3 ML VIAL SUBQ SCH (21:00)
[2021-04-17] MEDS ORDERED: Melatonin 3 MG TABLET PO SCH (22:45)
[2021-04-18 04:03] VITALS: O2SAT 94
[2021-04-18 07:01] VITALS: BP 150/83; PULSE 63; TEMP 98.4
[2021-04-18] MEDS: Insulin LISPRO 300 UNITS/3 ML VIAL SUBQ SCH (07:06)
[2021-04-18 07:17] LABS: Hemoglobin 13.8 g/dL (11.5-15.4); Mean Corpuscular HGB Conc 33.7 g/dL (31.6-35.5); Mean Corpuscular Hemoglobin 30.3 pg (28.0-33.3); Mean Corpuscular Volume 89.9 fL (83.0-100.0); Mean Platelet Volume 11.6 fL (9.4-12.4); Platelet Count 224 K/mcL (140-400); Red Blood Count 4.56 M/mcL (3.82-4.97); Red Cell Distribution Width 12.8 % (11.5-14.5); White Blood Count 7.3 K/mcL (4.3-11.1)
[2021-04-18 07:38] LABS: BUN/Creatinine Ratio 18 (6-26); Blood Urea Nitrogen 13 mg/dL (8-23); Carbon Dioxide 25 mEq/L (23-29); Chloride 108 mEq/L (98-107); Glucose 108 mg/dL (70-105); Osmolality,Calculated 293 (280-300); Potassium 3.9 mEq/L (3.5-5.1); Sodium 141 mEq/L (136-145); eGFR For African Americans > 60 (> 60); eGFR For Non-African Americans > 60 (> 60)
[2021-04-18] MEDS: DilTIAZem CD (24hr) 120 MG CAP.ER.24H PO SCH (10:48)
[2021-04-18] MEDS: Gabapentin 300 MG CAPSULE PO SCH (10:48)
[2021-04-18] MEDS ORDERED: Gabapentin 300 MG CAPSULE PO SCH (21:00)
== END 2021-04-18 11:05 | disposition home or self-care (01) ==
LOC: 3BNU 09:01 → EMEROOARM 09:01 → SUATTDRO 15:05 → 3BNU 15:45
PROVIDERS: ADMIT Family Medicine; ATTEND Internal Medicine